=== PATIENT | male | born 1965 | race Caucasian/White ===

== ENCOUNTER 2018-06-16 16:10 | Emergency (ER) | payer BC, SELFPAY ==
[2018-06-16 16:11] VITALS: BP 162/96; PULSE 105; RESP 17; TEMP 36.4; O2SAT 97; BMI 29.8
--- NOTE | 2018-06-16 16:40 | CT_ITS ---
STUDY: CTA CHEST REASON FOR EXAM: Male, 52 years old. Shortness of breath RADIATION DOSAGE (If Supplied By Facility): CTDIvol = ( 15.44 ) mGy, DLP = ( 1615.57 ) mGycm TECHNIQUE: The examination was performed with the intravenous administration of 100 ml of Isovue 370 contrast material. Post-processing of the angiographic images was performed, with multiplanar reformation and 3D reconstruction. Individualized dose optimization techniques were used for this CT. COMPARISON: None. FINDINGS: Normal enhancement of the main pulmonary artery and right and left pulmonary arteries without filling defects. Normal enhancement of the bilateral peripheral pulmonary arteries without evidence of filling defects. The thoracic aorta is unremarkable. There is no demonstrated aortic dissection. The heart is normal in size. There is minimal fluid in the pericardial space. There is marked soft tissue in the anterior mediastinum measuring up to 9 cm in the transverse plane. There are enlarged lymph nodes throughout the mediastinum. The hilar regions are unremarkable. The airways are unremarkable. There is minimal biapical scarring. There is dependent atelectasis in both lower lobes. There is no demonstrated pleural abnormality. There are prominent lymph nodes in the left axilla. There are enlarged lymph nodes in the lower neck, left greater than right. There are mild degenerative changes in the visualized spine. There are moderate degenerative changes in both shoulders. There is mild diverticulosis of the visualized colon. CT/CTA Chest W/WO Contrast IMPRESSION: There is no evidence of pulmonary embolism, aortic aneurysm or aortic dissection. There are enlarged lymph nodes throughout the mediastinum with a large conglomerate of nodes in the anterior mediastinum measuring up to 9 cm in the transverse plane. Although this may represent metastatic lymph nodes, the appearance is highly worrisome for lymphoma. There is probable compression of the left brachiocephalic vein likely accounting for the left arm and neck swelling. There are prominent lymph nodes in the left axillary region, and there are enlarged lymph nodes in the lower neck which are more numerous on the left side. There are no acute parenchymal abnormalities. There is dependent atelectasis in both lungs. There is no pleural effusion. There is a small pericardial effusion. Electronically Signed: Chely Fountain MD at 18:23 EDT Tel Direct: [phone], Service support ,
--- NOTE | 2018-06-16 16:40 | CT_ITS ---
STUDY: CTA NECK WITH CONTRAST REASON FOR EXAM: Male, 52 years old. Left neck and arm swelling RADIATION DOSAGE (If Supplied By Facility): CTDIvol = ( 15.44 ) mGy, DLP = ( 1615.57 ) mGycm TECHNIQUE: CT angiography with multi-detector data acquisition was performed from the aortic arch to the skull base following intravenous administration of 100 ml of Isovue 370 contrast. MIP images were reconstructed from the axial data set. Post-processing of the angiographic images was performed, with multiplanar reformation and 3D reconstruction. Individualized dose optimization techniques were used for this CT. COMPARISON: None. FINDINGS: AORTIC ARCH: The aortic arch is normal in appearance. Normal origins of the brachiocephalic, left common carotid, and left subclavian arteries. RIGHT CAROTID ARTERIES: There are no significant abnormalities in the right common carotid artery. The right carotid bulb is normal in appearance. Normal origin of the right internal carotid artery without a hemodynamically significant stenosis. Normal visualized cervical portion of the right internal carotid artery. Normal origin of the right external carotid artery (ECA). LEFT CAROTID ARTERIES: There are no significant abnormalities in the left common carotid artery. The left carotid bulb is normal in appearance. Normal origin of the left internal carotid artery without a hemodynamically significant stenosis. Normal visualized cervical portion of the left internal carotid artery. Normal origin of the left external carotid artery (ECA). VERTEBRAL ARTERIES: The vertebral arteries show no significant abnormalities. There is minimal biapical scarring. There is a large mass in the upper anterior mediastinum. There are enlarged lymph nodes in the lower neck, more numerous on the left side. These measure up to 2 cm in size. The distal left jugular vein is occluded. The distal left subclavian vein is not visualized. The left brachiocephalic vein is not visualized. The thyroid is normal in appearance. The submandibular glands and parotid glands are symmetric and normal in appearance. There are mild sinus changes in the ethmoid air cells. The mastoid air cells are well aerated. There are mild degenerative changes in the cervical spine. CT/CTA Neck W/WO Contrast IMPRESSION: There is no significant vascular disease in the cervical carotid arteries or vertebral arteries. There is a large mass in the upper anterior mediastinum, likely a conglomerate of enlarged lymph nodes. The appearance is highly worrisome for lymphoma. There are also enlarged lymph nodes in the lower neck, more numerous on the left side. 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 Electronically Signed: Chely Fountain MD at 18:28 EDT Tel Direct: [phone], Service support ,
[2018-06-16 17:00] LABS: Absolute Lymphocyte Count 1.43 X10^3/ul (0.83-4.51); Absolute Neutrophil Count 5.5 X10^3/uL (2.0-7.7); Basophil# 0.01 X10^3/uL; Basophil% 0.1 % (0-1); Eosinophil# 0.51 X10^3/uL; Eosinophils% 6.1 % (0-5); Hematocrit 37.9 % (40-54); Hemoglobin 12.6 g/dl (13.0-16.5); Lymphocyte # 1.43 X10^3/ul (4.0); Lymphocyte % 17.2 % (19-41); Mean Corp Hgb Conc 33.2 g/gl (32-36); Mean Corpuscular Hgb 28.8 pg (27.0-32.0); Mean Corpuscular Volume 86.5 fL (80-94); Mean Platelet Vol. 8.7 fl (6.2-12.0); Monocyte# 0.86 X10^3/uL; Monocyte% 10.3 % (0-10); Neutrophil # 5.47 X10^3/uL (2.7-7.7); Neutrophil % 65.9 % (47-70); Platelet Count 315 K/mm3 (150-450); RBC Distribution Width CV 12.5 % (11.6-14.6); RBC Distribution Width SD 40.1 fl (35.1-43.9); Red Blood Count 4.38 M/mm3 (4.6-6.2); White Blood Count 8.3 K/mm3 (4.4-11.0)
[2018-06-16 17:01] LABS: POSITIVE COUNT NO; POSITIVE DIFFERENTIAL NO; POSITIVE MORPHOLOGY NO
[2018-06-16 17:24] LABS: Anion Gap 5 (5-15); BUN 14 mg/dL (7-18); BUN/Creat Ratio 12.8 RATIO (10-20); Calcium,Total 8.8 mg/dL (8.5-10.1); Chloride 107 mmol/L (98-107); Creatinine, Serum 1.09 mg/dL (0.70-1.30); EST Glomerular Filtration Rate 76 mL/min (>60); Est Glom Filt Rate - Afr Amer 92 mL/min (>60); Estimated Creatinine Clearance 73.17 ml/min; Glucose 95 mg/dL (74-106); Potassium 3.8 mmol/L (3.5-5.1); Sodium Level 139 mmol/L (136-145)
--- NOTE | 2018-06-16 17:53 | ED.DCSUM_ITS ---
- ER Visit Summary Date of Service: 06/16/18 Chief Complaint: Left arm swelling History of Present Illness: The patient is a 52 M presenting with swelling of his left upper extremity. He states this occurred 1 week ago. He woke up and his left arm was swollen. He states over the next several days it started to resolve. Today he noticed swelling in the lower part of the anterior left neck. He denies any injury. Denies chest pain or shortness of breath. He has had a mild cough. Denies fever. Denies other complaints. Physical Examination: Vitals are stable. Patient is afebrile. Alert no acute distress. HEENT exam is unremarkable. Neck is supple. Left anterior lower neck swelling with no redness, warmth, or areas of fluctuance. Lungs are clear and equal bilaterally. Heart is regular rate and rhythm. Abdomen is soft nontender nondistended. Extremities no obvious swelling of left upper extremity, normal pulse. No warmth or erythema. Skin is warm and dry. No focal neurologic deficit. Remainder of exam is unremarkable. Emergency Department Course and Treatment: CBC, chemistries unremarkable. Troponin is negative. CTA chest shows there is no evidence of pulmonary embolism, aortic aneurysm or aortic dissection. There are enlarged lymph nodes throughout the mediastinum with a large conglomerate of nodes in the anterior mediastinum measuring up to 9 cm in the transverse plane. Although this may represent metastatic lymph nodes, the appearance is highly worrisome for lymphoma. There is probable compression of the left brachiocephalic vein likely accounting for the left arm and neck swelling. There are prominent lymph nodes in the left axillary region, and there are enlarged lymph nodes in the lower neck which are more numerous on the left side. There are no acute parenchymal abnormalities. There is dependent atelectasis in both lungs. There is no pleural effusion. There is a small pericardial effusion. CTA neck shows there is no significant vascular disease in the cervical carotid arteries or vertebral arteries. There is a large mass in the upper anterior mediastinum, likely a conglomerate of enlarged lymph nodes. The appearance is highly worrisome for lymphoma. There are also enlarged lymph nodes in the lower neck, more numerous on the left side. 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 Discussed with Dr. Pierce and Dr. Costello. He was evaluated by Dr. Costello in the ED. He requested CT neck chest abdomen pelvis without contrast. This was obtained. He will likely need mediastinoscopy to obtain biopsy. He recommends transfer to a tertiary care center. Discussed with [facility] for transfer. Disposition: Transfer [facility] Impression: Left arm and neck swelling, anterior mediastinal mass with lymph nodes concerning for lymphoma This note was generated with [employer] dictation software. It may contain incorrect words, spelling, and punctuation that were not noted in review of the chart prior to signing ED Disposition - Plan for ED Patient: Chief Complaint: Upper Extremity Injury Referrals: Leif Pruett MD [Primary Care Provider] -
[2018-06-16 18:20] VITALS: BP 140/93; PULSE 87; RESP 14
[2018-06-16 20:00] VITALS: BP 153/78; PULSE 78; RESP 17; O2SAT 98
--- NOTE | 2018-06-16 20:08 | CT_ITS ---
STUDY: CT SOFT TISSUE NECK WITHOUT CONTRAST REASON FOR EXAM: Male, 52 years old. Neck pain RADIATION DOSAGE (If Supplied By Facility): CTDIvol = ( 23.07 ) mGy, DLP = ( 2646.07 ) mGycm TECHNIQUE: The patient was scanned in a multi-detector CT scanner. High resolution transaxial imaging was performed without the administration of intravenous contrast material. Sagittal and coronal images were reconstructed. # of Images: 532 Individualized dose optimization techniques were used for this CT. COMPARISON: None. FINDINGS: Normal bilateral parotid glands. Normal bilateral staff reporter spaces. Normal bilateral parapharyngeal spaces. Normal bilateral carotid spaces. Normal bilateral sublingual and submandibular glands and spaces. Normal visualized nasopharynx. Normal retropharyngeal space. Normal perivertebral space. Normal visualized bilateral faucial tonsils. The visualized tongue, tongue base and oropharynx are normal. Bilateral diffuse supraclavicular lymphadenopathy with bulky appearance. Small jugulodigastric bilateral lymph nodes in the neck Normal epiglottis, bilateral vallecula and hypopharynx. The pre-epiglottic and paraglottic adipose spaces are normal. Normal visualized bilateral piriform sinuses, aryepiglottic folds, vocal cords, and arytenoid-cricoid articulations. Normal subglottic trachea. Normal bilateral lobes of the thyroid gland. Normal visualized paranasal sinuses. There is multilevel degenerative changes of the cervical spine. CT/Soft Tissue Neck without Contr IMPRESSION: Bulky and diffuse bilateral supraclavicular lymphadenopathy. Suggestive of lymphoma. Only small lymph nodes in the neck region however. No evidence of abscess. Electronically Signed: Yunior Argueta DO at 20:53 EDT Tel , Service support ,
--- NOTE | 2018-06-16 20:08 | CT_ITS ---
STUDY: CT CHEST WITHOUT CONTRAST REASON FOR EXAM: Male, 52 years old. Chest pain RADIATION DOSAGE (If Supplied By Facility): CTDIvol = ( 23.07 ) mGy, DLP = ( 2646.07 ) mGycm TECHNIQUE: Transaxial imaging of the chest was performed without intravenous contrast material. Sagittal and coronal reconstructions were performed. Individualized dose optimization techniques were used for this CT. COMPARISON: CTA chest from the same day FINDINGS: There are no focal airspace opacities. There are increased lung markings in the dependent aspects of both lower lobes. There is no demonstrated pleural abnormality. The heart is normal in size. There is minimal fluid in the pericardial space. There are enlarged lymph nodes in the mediastinum. There is a mass in the anterior mediastinum measuring up to 9 cm in transverse diameter. The hilar regions are unremarkable allowing for lack of contrast in the vessels. The pulmonary arteries are unremarkable. The thoracic aorta is within normal limits. There are minimal degenerative changes in the visualized spine. There are moderate degenerative changes in both shoulders. There are prominent lymph nodes in the left axillary region. The upper abdomen is dictated separately. CT/Chest without Contrast IMPRESSION: There are enlarged lymph nodes throughout the mediastinum, as well as a mass in the anterior mediastinum likely representing a conglomerate of lymph nodes. This measures up to 9 cm in the transverse diameter. The appearance is worrisome for lymphoma. There are no acute parenchymal abnormalities. There is dependent atelectasis in both lower lobes. There is no pleural effusion. There is a small pericardial effusion. Electronically Signed: Chely Fountain MD at 21:19 EDT Tel Direct: [phone], Service support ,
--- NOTE | 2018-06-16 20:08 | CT_ITS ---
STUDY: CT ABDOMEN AND PELVIS WITHOUT CONTRAST REASON FOR EXAM: Male, 52 years old. Abdominal pain RADIATION DOSAGE (If Supplied By Facility): CTDIvol = ( 23.07 ) mGy, DLP = ( 2646.07 ) mGycm TECHNIQUE: Transaxial images were obtained from the lower chest to the upper thighs without oral contrast, and without intravenous contrast. Sagittal and coronal images were reconstructed. Individualized dose optimization techniques were used for this CT. COMPARISON: None. FINDINGS: The lower chest is dictated separately. The liver is unremarkable. The gallbladder and biliary ducts are unremarkable. The spleen is unremarkable. The pancreas is unremarkable. The adrenal glands are unremarkable. The right kidney is unremarkable. There is no dilatation of the collecting system in the right kidney. The left kidney is unremarkable. There is no dilatation of the collecting system in the left kidney. There is contrast in the collecting systems of both kidneys after CTA of the chest. The stomach is unremarkable. The small bowel is unremarkable. The colon is unremarkable. The appendix is visualized and appears normal. There are minimal scattered vascular calcifications. The IVC is unremarkable. The retroperitoneum is unremarkable. There is no free fluid in the abdomen. There is contrast in the bladder after CTA of the chest. The prostate is normal in size with coarse calcifications. There is a small umbilical hernia containing fat. There are mild degenerative changes in the visualized spine. There are marked degenerative disc changes at L5-S1. CT/Abdomen/Pelvis without Cont IMPRESSION: No acute abnormalities are seen in the abdomen or pelvis. There are no acute bowel abnormalities. There is no ascites or free air. There is no significant lymphadenopathy in the abdomen or pelvis. Electronically Signed: Chely Fountain MD at 21:05 EDT Tel Direct: [phone], Service support ,
[2018-06-16 22:18] VITALS: BP 145/88; PULSE 90; RESP 22
[2018-06-17] VITALS: BP 146/88; PULSE 55; RESP 15
[2018-06-17 02:45] VITALS: BP 146/88; PULSE 84; PULSE 87; RESP 16; O2SAT 97; O2SAT 98
--- NOTE | 2018-06-17 05:41 | PCM.CONS.GEN ---
Reason for Consult Date of Consultation: 06/16/18 History of Present Illness: The patient is a 52 year old M who presented with a one-week history of left arm swelling. patient initially noted that his fingers seemed somewhat dusky and his upper arm was more swollen than his right arm. He noted this last week. His massages arm and felt that improved the circulation, color, and had less swelling. The patient did note some numbness and tingling in his fingers at that time but this has since improved. Since this is persistent for the past week and the patient now notes a degree of swelling to the left side of his neck he presented to [facility] emergency department. He denied constitutional symptoms of fever, night sweats weight loss or other difficulties. He noted no palpable adenopathy. He does note a mild cough. CT angiogram of the chest was obtained. This demonstrated significant adenopathy that was felt to be pharmaceutical service representative of lymphoma. Dr. Pierce was initially consult by the emergency department and asked if the patient could be admitted for probable lymphoma. I was contacted for possible biopsy. Dr. Pierce also had wished to have CT scan of the neck chest abdomen and pelvis obtained. These images were obtained and reviewed by myself. reviewing the CT scans now with the official report included the following-CT scan of the neck FINDINGS: FINDINGS: There are no focal airspace opacities. There are increased lung markings in the dependent aspects of both lower lobes. There is no demonstrated pleural abnormality. The heart is normal in size. There is minimal fluid in the pericardial space. There are enlarged lymph nodes in the mediastinum. There is a mass in the anterior mediastinum measuring up to 9 cm in transverse diameter. The hilar regions are unremarkable allowing for lack of contrast in the vessels. The pulmonary arteries are unremarkable. The thoracic aorta is within normal limits. There are minimal degenerative changes in the visualized spine. There are moderate degenerative changes in both shoulders. There are prominent lymph nodes in the left axillary region. The upper abdomen is dictated separately. CT scan of Chest: CT/Chest without Contrast IMPRESSION: There are enlarged lymph nodes throughout the mediastinum, as well as a mass in the anterior mediastinum likely representing a conglomerate of lymph nodes. This measures up to 9 cm in the transverse diameter. The appearance is worrisome for lymphoma. There are no acute parenchymal abnormalities. There is dependent atelectasis in both lower lobes. There is no pleural effusion. There is a small pericardial effusion. Normal bilateral parotid glands. Normal bilateral client reporting associate spaces. Normal bilateral parapharyngeal spaces. Normal bilateral carotid spaces. Normal bilateral sublingual and submandibular glands and spaces. Normal visualized nasopharynx. Normal retropharyngeal space. Normal perivertebral space. Normal visualized bilateral faucial tonsils. The visualized tongue, tongue base and oropharynx are normal. Bilateral diffuse supraclavicular lymphadenopathy with bulky appearance. Small jugulodigastric bilateral lymph nodes in the neck Normal epiglottis, bilateral vallecula and hypopharynx. The pre-epiglottic and paraglottic adipose spaces are normal. Normal visualized bilateral piriform sinuses, aryepiglottic folds, vocal cords, and arytenoid-cricoid articulations. Normal subglottic trachea. Normal bilateral lobes of the thyroid gland. Normal visualized paranasal sinuses. There is multilevel degenerative changes of the cervical spine. CT/Soft Tissue Neck without Contr IMPRESSION: Bulky and diffuse bilateral supraclavicular lymphadenopathy. Suggestive of lymphoma. Only small lymph nodes in the neck region however. No evidence of abscess. Ct scan of abdomen and pelvis: FINDINGS: The lower chest is dictated separately. The liver is unremarkable. The gallbladder and biliary ducts are unremarkable. The spleen is unremarkable. The pancreas is unremarkable. The adrenal glands are unremarkable. The right kidney is unremarkable. There is no dilatation of the collecting system in the right kidney. The left kidney is unremarkable. There is no dilatation of the collecting system in the left kidney. There is contrast in the collecting systems of both kidneys after CTA of the chest. The stomach is unremarkable. The small bowel is unremarkable. The colon is unremarkable. The appendix is visualized and appears normal. There are minimal scattered vascular calcifications. The IVC is unremarkable. The retroperitoneum is unremarkable. There is no free fluid in the abdomen. There is contrast in the bladder after CTA of the chest. The prostate is normal in size with coarse calcifications. There is a small umbilical hernia containing fat. There are mild degenerative changes in the visualized spine. There are marked degenerative disc changes at L5-S1. CT/Abdomen/Pelvis without Cont IMPRESSION: No acute abnormalities are seen in the abdomen or pelvis. There are no acute bowel abnormalities. There is no ascites or free air. There is no significant lymphadenopathy in the abdomen or pelvis. Past Medical History Allergies house dust Allergy (Verified 06/16/18 16:11) Unknown ragweed pollen Allergy (Verified 06/16/18 16:11) Unknown Home Medications: Ambulatory Orders Medication Instructions Recorded NK 06/16/18 Surgical History: no surgical history Smoking Status: Former smoker Review of Systems Constitutional: Denies: Chills, Fever, Weight Change HEENT: Denies: Head Aches, Sinus Congestion, Sinus Drainage Cardiovascular: Denies: Chest Pain, Palpitations Respiratory: Denies: Cough, Shortness of breath at rest, Sputum production Gastrointestinal: Denies: Abdominal Pain, Nausea, Vomiting Genitourinary: Denies: Dysuria Musculoskeletal: Denies: Joint Pain, Joint Tenderness Skin: Denies: Rash, Wounds Neurological: Denies: Numbness, Tingling, Focal weakness Psychiatric: Denies: Anxiety, Depression, Homicidal Ideations, Suicidal Ideations Hematologic/ Lymphatic: Denies: Easy Bruising, Easy Bleeding - Physical Exam General: Alert, Oriented x3 HEENT: Lymphadenopathy - mild shotty lymph nodes without suspicious palpable lymph nodes in the right or left upper neck. Asymmetry with edema of the left neck and supraclavicular region along with the left lateral face near the jawline consistent with a degree of venous distention. Lungs: Clear to auscultation, Normal air movement Cardiovascular: Regular rate, Regular Rhythm Abdomen: Bowel Sounds Present, Soft, Non Tender Extremities: - - a degree of asymmetry and swelling of the left upper arm compared to the right. No axillary adenopathy of significance on palpation no inguinal adenopathy. Vital Signs Temp Pulse Resp BP Pulse Ox 97.5 F L 87 16 146/88 H 98 06/16/18 16:11 06/17/18 02:45 06/17/18 02:45 06/17/18 02:45 06/17/18 02:45 Oxygen Delivery Method Room Air Weight: 83.915 kg Body Mass Index (BMI) 29.8 Laboratory Tests Past 24 Hrs 06/16/18 06/16/18 16:45 16:45 WBC 8.3 RBC 4.38 L Hgb 12.6 L Hct 37.9 L MCV 86.5 MCH 28.8 MCHC 33.2 RDW 12.5 RDW Differential 40.1 Plt Count 315 MPV 8.7 Immature Gran % (Auto) 0.400 Neut % (Auto) 65.9 Lymph % (Auto) 17.2 L Caroline % (Auto) 10.3 H Eos % (Auto) 6.1 H Baso % (Auto) 0.1 Absolute Neuts (auto) 5.5 Absolute Lymphs (auto) 1.43 Total Counted Not Reportable Sodium 139 Potassium 3.8 Chloride 107 Carbon Dioxide 27.0 Anion Gap 5 BUN 14 Creatinine 1.09 Estim Creat Clear Calc 73.17 Est GFR (MDRD) Af Amer 92 Est GFR (MDRD) Non-Af 76 BUN/Creatinine Ratio 12.8 Glucose 95 Calcium 8.8 Troponin I < 0.015 Assessment/Plan All Active Problems (Last Reviewed 06/16/18 @ 15:56 by Judith Javed) Corneal abrasion, 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 my review the CT scan and clinical examination does not reveal the degree of adenopathy of the supraclavicular abnormalities when compared to the very significant mediastinal adenopathy. It appears to me that the majority of SVC compression issues are related to the brachiocephalic trunk with this large mediastinal mass. Further the character of the mediastinal mass seems somewhat different than the adenopathy in the left supraclavicular area in that these lymph nodes seem multiple but around and variable in size. I'm not certain that the abnormalities in the supraclavicular area are more related to venous and lymphatic hypertension as opposed to the actual abnormality seen in the mediastinum. I'm also not comfortable given the depth of the lower neck supraclavicular area that I could comfortably or safely access these nodes for needle biopsy. I attempted to contact our radiologist who could perform ultrasound or CAT scan guided biopsy on Tuesday and unfortunately was unable to communicate with him. Given the location of this abnormality I'm contemplating the patient would likely benefit from CT-guided biopsy but would possibly need mediastinoscopy to biopsy the most suspicious mass. Given these findings and my inability to assure that we could do the biopsy locally, I recommended referral to a tertiary care center.
--- NOTE | 2018-06-17 05:46 | CON.PCM_ITS ---
Reason for Consult Date of Consultation: 06/16/18 History of Present Illness: The patient is a 52 year old M who presented with a one-week history of left arm swelling. patient initially noted that his fingers seemed somewhat dusky and his upper arm was more swollen than his right arm. He noted this last week. His massages arm and felt that improved the circulation, color, and had less swelling. The patient did note some numbness and tingling in his fingers at that time but this has since improved. Since this is persistent for the past week and the patient now notes a degree of swelling to the left side of his neck he presented to [facility] emergency department. He denied c onstitutional symptoms of fever, night sweats weight loss or other difficulties. He noted no palpable adenopathy. He does note a mild cough. CT angiogram of the chest was obtained. This demonstrated significant adenopathy that was felt to be food service sales representatives of lymphoma. Dr. Pierce was initially consult by the emergency department and asked if the patient could be admitted for probable lymphoma. I was contacted for possible biopsy. Dr. Pierce also had wished to have CT scan of the neck chest abdomen and pelvis obtained. These images were obtained and reviewed by myself. reviewing the CT scans now with the official report included the following-CT scan of the neck FINDINGS: FINDINGS: There are no focal airspace opacities. There are increased lung markings in the dependent aspects of both lower lobes. There is no demonstrated pleural abnormality. The heart is normal in size. There is minimal fluid in the pericardial space. There are enlarged lymph nodes in the mediastinum. There is a mass in the anterior mediastinum measuring up to 9 cm in transverse diameter. The hilar regions are unremarkable allowing for lack of contrast in the vessels. The pulmonary arteries are unremarkable. The thoracic aorta is within normal limits. There are minimal degenerative changes in the visualized spine. There are moderate degenerative changes in both shoulders. There are prominent lymph nodes in the left axillary region. The upper abdomen is dictated separately. CT scan of Chest: CT/Chest without Contrast IMPRESSION: There are enlarged lymph nodes throughout the mediastinum, as well as a mass in the anterior mediastinum likely representing a conglomerate of lymph nodes. This measures up to 9 cm in the transverse diameter. The appearance is worrisome for lymphoma. There are no acute parenchymal abnormalities. There is dependent atelectasis in both lower lobes. There is no pleural effusion. There is a small pericardial effusion. Normal bilateral parotid glands. Normal bilateral zigzag stitcher spaces. Normal bilateral parapharyngeal spaces. Normal bilateral carotid spaces. Normal bilateral sublingual and submandibular glands and spaces. Normal visualized nasopharynx. Normal retropharyngeal space. Normal perivertebral space. Normal visualized bilateral faucial tonsils. The visualized tongue, tongue base and oropharynx are normal. Bilateral diffuse supraclavicular lymphadenopathy with bulky appearance. Small jugulodigastric bilateral lymph nodes in the neck Normal epiglottis, bilateral vallecula and hypopharynx. The pre-epiglottic and paraglottic adipose spaces are normal. Normal visualized bilateral piriform sinuses, aryepiglottic folds, vocal cords, and arytenoid-cricoid articulations. Normal subglottic trachea. Normal bilateral lobes of the thyroid gland. Normal visualized paranasal sinuses. There is multilevel degenerative changes of the cervical spine. CT/Soft Tissue Neck without Contr IMPRESSION: Bulky and diffuse bilateral supraclavicular lymphadenopathy. Suggestive of lymphoma. Only small lymph nodes in the neck region however. No evidence of abscess. Ct scan of abdomen and pelvis: FINDINGS: The lower chest is dictated separately. The liver is unremarkable. The gallbladder and biliary ducts are unremarkable. The spleen is unremarkable. The pancreas is unremarkable. The adrenal glands are unremarkable. The right kidney is unremarkable. There is no dilatation of the collecting system in the right kidney. The left kidney is unremarkable. There is no dilatation of the collecting system in the left kidney. There is contrast in the collecting systems of both kidneys after CTA of the chest. The stomach is unremarkable. The small bowel is unremarkable. The colon is unremarkable. The appendix is visualized and appears normal. There are minimal scattered vascular calcifications. The IVC is unremarkable. The retroperitoneum is unremarkable. There is no free fluid in the abdomen. There is contrast in the bladder after CTA of the chest. The prostate is normal in size with coarse calcifications. There is a small umbilical hernia containing fat. There are mild degenerative changes in the visualized spine. There are marked degenerative disc changes at L5-S1. CT/Abdomen/Pelvis without Cont IMPRESSION: No acute abnormalities are seen in the abdomen or pelvis. There are no acute bowel abnormalities. There is no ascites or free air. There is no significant lymphadenopathy in the abdomen or pelvis. Past Medical History Allergies house dust Allergy (Verified 06/16/18 16:11) Unknown ragweed pollen Allergy (Verified 06/16/18 16:11) Unknown Home Medications: Ambulatory Orders Medication Instructions Recorded NK 06/16/18 Surgical History: no surgical history Smoking Status: Former smoker Review of Systems Constitutional: Denies: Chills, Fever, Weight Change HEENT: Denies: Head Aches, Sinus Congestion, Sinus Drainage Cardiovascular: Denies: Chest Pain, Palpitations Respiratory: Denies: Cough, Shortness of breath at rest, Sputum production Gastrointestinal: Denies: Abdominal Pain, Nausea, Vomiting Genitourinary: Denies: Dysuria Musculoskeletal: Denies: Joint Pain, Joint Tenderness Skin: Denies: Rash, Wounds Neurological: Denies: Numbness, Tingling, Focal weakness Psychiatric: Denies: Anxiety, Depression, Homicidal Ideations, Suicidal Ideations Hematologic/ Lymphatic: Denies: Easy Bruising, Easy Bleeding - Physical Exam General: Alert, Oriented x3 HEENT: Lymphadenopathy - mild shotty lymph nodes without suspicious palpable lymph nodes in the right or left upper neck. Asymmetry with edema of the left neck and supraclavicular region along with the left lateral face near the jawline consistent with a degree of venous distention. Lungs: Clear to auscultation, Normal air movement Cardiovascular: Regular rate, Regular Rhythm Abdomen: Bowel Sounds Present, Soft, Non Tender Extremities: - - a degree of asymmetry and swelling of the left upper arm compared to the right. No axillary adenopathy of significance on palpation no inguinal adenopathy. Vital Signs Temp Pulse Resp BP Pulse Ox 97.5 F L 87 16 146/88 H 98 06/16/18 16:11 06/17/18 02:45 06/17/18 02:45 06/17/18 02:45 06/17/18 02:45 Oxygen Delivery Method Room Air Weight: 83.915 kg Body Mass Index (BMI) 29.8 Laboratory Tests Past 24 Hrs 06/16/18 06/16/18 16:45 16:45 WBC 8.3 RBC 4.38 L Hgb 12.6 L Hct 37.9 L MCV 86.5 MCH 28.8 MCHC 33.2 RDW 12.5 RDW Differential 40.1 Plt Count 315 MPV 8.7 Immature Gran % (Auto) 0.400 Neut % (Auto) 65.9 Lymph % (Auto) 17.2 L [place] % (Auto) 10.3 H Eos % (Auto) 6.1 H Baso % (Auto) 0.1 Absolute Neuts (auto) 5.5 Absolute Lymphs (auto) 1.43 Total Counted Not Reportable Sodium 139 Potassium 3.8 Chloride 107 Carbon Dioxide 27.0 Anion Gap 5 BUN 14 Creatinine 1.09 Estim Creat Clear Calc 73.17 Est GFR (MDRD) Af Amer 92 Est GFR (MDRD) Non-Af 76 BUN/Creatinine Ratio 12.8 Glucose 95 Calcium 8.8 Troponin I < 0.015 Assessment/Plan All Active Problems (Last Reviewed 06/16/18 @ 15:56 by Judith Javed) Corneal abrasion, 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 my review the CT scan and clinical examination does not reveal the degree of adenopathy of the supraclavicular abnormalities when compared to the very significant mediastinal adenopathy. It appears to me that the majority of SVC compression issues are related to the brachiocephalic trunk with this large mediastinal mass. Further the character of the mediastinal mass seems somewhat different than the adenopathy in the left supraclavicular area in that these lymph nodes seem multiple but around and variable in size. I'm not certain that the abnormalities in the supraclavicular area are more related to venous and lymphatic hypertension as opposed to the actual abnormality seen in the mediastinum. I'm also not comfortable given the depth of the lower neck supracl avicular area that I could comfortably or safely access these nodes for needle biopsy. I attempted to contact our radiologist who could perform ultrasound or CAT scan guided biopsy on Tuesday and unfortunately was unable to communicate with him. Given the location of this abnormality I'm contemplating the patient would likely benefit from CT-guided biopsy but would possibly need mediastinoscopy to biopsy the most suspicious mass. Given these findings and my inability to assure that we could do the biopsy locally, I recommended referral to a tertiary care center.
== END 2018-06-17 02:47 | disposition short-term general hospital (02) ==
PROVIDERS: Emergency Provider Emergency Medicine; Family Provider Family Medicine; PCP Family Medicine
DX: I89.8 Other specified noninfective disorders of lymphatic vessels and lymph nodes (principal); R22.1 Localized swelling, mass and lump, neck; M79.89 Other specified soft tissue disorders; Z87.891 Personal history of nicotine dependence
CPT/HCPCS: 70490; 70498; 71250; 71275; 74176; 80048; 84484; 85025; 99285; Q9967; A4216

== ENCOUNTER 2018-10-24 18:41 | Emergency (ER) | payer BC, SELFPAY ==
[2018-10-24 18:41] VITALS: BP 159/87; PULSE 111; RESP 18; TEMP 36.1; O2SAT 98; BMI 30.5
--- NOTE | 2018-10-24 19:11 | ED.VISSUMM ---
- ER Visit Summary Date of Service: 10/24/18 Chief Complaint: Patient presents because of concern for blood clot. History of Present Illness: The patient is a 53 M who has history of Hodgkin's lymphoma stage II under the care of Dr. Hill. He has a port left subclavian. He presents because of swelling, discoloration, discomfort and tingling of his right upper extremity. This started within the last 12-24 hours. Denies chest pain, shortness of breath or difficulty breathing. He denies any leg pain, swelling discoloration. He has no other complaints. Physical Examination: Vital signs noted. Blood pressure is elevated. He is slightly tachycardic at 111. He is not hypoxic, tachypneic or febrile. HEENT is grossly unremarkable. Radial pulse palpable. Axillary, median, radial and ulnar intact. The right upper extremity is swollen compared to the left with discoloration. 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 Test Results: Outpatient venous duplex study was ordered of the right upper extremity to be performed tomorrow. He will receive 1 dose of Lovenox in the emergency department. Emergency Department Course and Treatment: 1 mg/kg Lovenox and outpatient venous duplex study. Dr. Hill was paged to inform him that we do not have capability of performing venous duplex study of the upper extremity after 5 PM. Treatment Plan: Lovenox and outpatient study Disposition: Discharge to home Impression: Phlegmasia cerulea dolens right upper extremity This note was generated with [employer] dictation software. It may contain incorrect words, spelling, and punctuation that were not noted in review of the chart prior to signing ED Disposition - Plan for ED Patient: Disposition: Home or Assisted Living Instructions: ED DVT Referrals: Leif Pruett MD [Primary Care Provider] - Delfin Pierce MD [STAFF PHYSICIAN] - Additional Instructions: You will need to contact outpatient vascular lab for appointment tomorrow morning to have a venous duplex study of the right upper extremity to confirm suspicion for clot right upper extremity. You were given a dose of Lovenox. You are more susceptible to bruising and if you were to hit your head he will need to return to the emergency department for evaluation.
--- NOTE | 2018-10-24 19:15 | ED.DCSUM_ITS ---
- ER Visit Summary Date of Service: 10/24/18 Chief Complaint: Patient presents because of concern for blood clot. History of Present Illness: The patient is a 53 M who has history of Hodgkin's lymphoma stage II under the care of Dr. Hill. He has a port left subclavian. He presents because of swelling, discoloration, discomfort and tingling of his right upper extremity. This started within the last 12-24 hours. Denies chest pain, shortness of breath or difficulty breathing. He denies any leg pain, s welling discoloration. He has no other complaints. Physical Examination: Vital signs noted. Blood pressure is elevated. He is slightly tachycardic at 111. He is not hypoxic, tachypneic or febrile. HEENT is grossly unremarkable. Radial pulse palpable. Axillary, median, radial and ulnar intact. The right upper extremity is swollen compared to the left with discoloration. 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 Test Results: Outpatient venous duplex study was ordered of the right upper extremity to be performed tomorrow. He will receive 1 dose of Lovenox in the emergency department. Emergency Department Course and Treatment: 1 mg/kg Lovenox and outpatient venous duplex study. Dr. Hill was paged to inform him that we do not have capability of performing venous duplex study of the upper extremity after 5 PM. Treatment Plan: Lovenox and outpatient study Disposition: Discharge to home Impression: Phlegmasia cerulea dolens right upper extremity This note was generated with [employer] dictation software. It may contain incorrect words, spelling, and punctuation that were not noted in review of the chart prior to signing ED Disposition - Plan for ED Patient: Disposition: Home or Assisted Living Instructions: ED DVT Referrals: Leif Pruett MD [Primary Care Provider] - Delfin Pierce MD [STAFF PHYSICIAN] - Additional Instructions: You will need to contact outpatient vascular lab for appointment tomorrow morning to have a venous duplex study of the right upper extremity to confirm suspicion for clot right upper extremity. You were given a dose of Lovenox. You are more susceptible to bruising and if you were to hit your head he will need to return to the emergency department for evaluation.
[2018-10-24] MEDS: Enoxaparin 100 MG/ML Syringe 90 MG SC (19:32)
[2018-10-24 19:35] VITALS: BP 138/105; PULSE 101; RESP 16; O2SAT 97
== END 2018-10-24 19:36 | disposition home or self-care (01) ==
PROVIDERS: Emergency Provider Emergency Medicine; Family Provider Family Medicine; PCP Family Medicine
DX: I80.8 Phlebitis and thrombophlebitis of other sites (principal); C81.90 Hodgkin lymphoma, unspecified, unspecified site
CPT/HCPCS: 96372; 99283

== ENCOUNTER → 2018-10-25 08:59 | Outpatient (CLI) | payer BC, SELFPAY ==
[2018-10-24 18:41] VITALS: BMI 30.5
--- NOTE | 2018-10-25 09:07 | VDUE_ITS ---
Reason For Study: Phlegmasia cerulea dolens per dr order Right Proximal Right jugular vein is spontaneous, widely patent, phasic, with no intraluminal echogenicity noted. Subclavian Vein is dilated and non- compressible with intraluminal echoes and absent color flow and doppler signal. Right Lower Arm Right radial vein is compressible. Right ulnar vein is compressible. Right Arm Axillary vein non-compressible with diminshed blood flow. Right brachial vein is compressible. Right cephalic vein is compressible. Right basilic vein is compressible. Interpretation Summary Acute deep venous thrombosis right subclavian and axillary veins. Patent and compressible right cephalic and basilic veins. Ordering Physician: Blayne Angeles Referring Physician: Delfin Pierce Performed By: Antonette Pride RVT ?
== END ==
PROVIDERS: Family Provider Family Medicine; PCP Family Medicine; Referring Provider Emergency Medicine; Visit Provider Emergency Medicine
DX: I80.8 Phlebitis and thrombophlebitis of other sites (principal)
CPT/HCPCS: 93971

== ENCOUNTER → 2018-11-06 08:37 | Outpatient (CLI) | payer BC, SELFPAY ==
[2018-10-24 18:41] VITALS: BMI 30.5
--- NOTE | 2018-11-06 09:00 | PET_ITS ---
EXAMINATION: FDG PET CT INDICATIONS: A 53-year-old male with reported history of lymphoma presenting for restaging examination. COMPARISON EXAMINATION: CT of the neck, chest, abdomen and pelvis reports dated 06/16/18. NON-INDEX LESION SIZE SUV INTERPRETATION Left periauricular region 0.7 Quantitative criteria for viable neoplasm are not fulfilled TECHNIQUE: Following the intravenous administration of 14.37 mCi of F-18 deoxyglucose via the left antecubital fossa, multiplanar image acquisitions of the neck, chest, abdomen and pelvis to level of mid thigh, obtained at one hour post radiopharmaceutical administration contemporaneously interpreted with the current CT of the neck, chest, abdomen and pelvis to level of mid thigh, dated 11/06/[address] of the neck, chest, abdomen and pelvis reports dated 06/16/18 reveal: SERUM GLUCOSE LEVEL: 118 mg/dl. HEIGHT: 66 inches. WEIGHT: 185 lbs. FINDINGS: 1. There is no quantitative scintigraphic evidence of abnormal increased glucose metabolism on meticulous inspection of whole body acquisitions to include all three axis reconstructions. 2. Normal physiologic distribution of the radiopharmaceutical is apparent in the hepatic (3.3) and splenic parenchyma, both renal units, bladder and visualized intestinal tract. There is uniform distribution of the radiopharmaceutical concentration defined in the visualized cerebellar hemispheres and cerebral cortical structures.? Diffuse intestinal tract activity is noted throughout all four quadrants of the abdominal-pelvic retroperitoneum, mesentery consistent with normal physiologic distribution of the radiopharmaceutical. Prominent glucose metabolism is defined in the ascending and descending thoracic, as well as abdominal aorta commensurate with activated leukocytes associated with atherosclerotic plaque formation. (Tu et al, Clinical Nuclear Medicine 29:93, 2004). Subtle increased glucose concentration is defined in the left periauricular region generating a calculated maximum standard uptake value of 0.7. Quantitative criteria for viable neoplasm are not fulfilled. Pertinent CT findings are as follows. CHEST: [id number]-[id number]-MediPort placement is noted. Subcentimeter bilateral axillary soft tissue densities are non-glucose avid. Mediastinal soft tissue demonstrates no evidence of definable enhanced glucose avidity. There are no parenchymal densities-nodules defined in the right-left hemithorax manifesting quantitatively significant increased glucose metabolism. ABDOMEN AND PELVIS: Pelvic arterial calcification is observed. Bilateral inguinal soft tissue densities are ametabolic. Calcifications are noted within the prostate gland without evidence of facilitated FDG uptake. Calcified phlebolith formation is noted in the right lower hemipelvis. There is borderline fatty metamorphosis defined within the hepatic parenchyma. SKELETAL: Degenerative changes defined in the cervical, thoracic and lumbar spine demonstrate no evidence for glucose hypermetabolism. Scattered sclerotic densities noted within the axial skeletal structures demonstrate no evidence of increased glucose metabolism. PET/PET/CT Tumor Base -Thigh Subs IMPRESSION: 1. NEGATIVE EXAMINATION. There is no definitive quantitative scintigraphic evidence of recurrent-viable neoplasm. 2. Mild enhanced glucose concentration observed in the left periauricular region does not fulfill quantitative criteria for viable neoplasm. Electronic Signature Sharath Vazquez D.O. Electronically Signed: Sharath Vazquez DO at 23:04 EDT Tel , Service support ,
== END ==
PROVIDERS: Family Provider Family Medicine; PCP Family Medicine; Referring Provider Internal Medicine Hematology & Oncology; Visit Provider Internal Medicine Hematology & Oncology
DX: C81.18 Nodular sclerosis Hodgkin lymphoma, lymph nodes of multiple sites (principal)
CPT/HCPCS: 78815; A9552

== ENCOUNTER → 2020-03-21 | Outpatient (CLI) | payer BC, SELFPAY | END | disposition home or self-care (01) | LOC: LABSPEC 15:55 | PROVIDERS: PCP Family Medicine; Referring Provider Family Medicine; Visit Provider Family Medicine | DX: B34.9 Viral infection, unspecified (principal) | CPT/HCPCS: 87635; U0003 ==

== ENCOUNTER 2021-09-08 10:40 | Outpatient (CLI) | payer BC, SELFPAY ==
[2021-09-08 12:17] LABS: Absolute Lymphocyte Count 1.25 X10^3/uL (0.83-4.51); Basophil# 0.01 X10^3/uL; Basophil% 0.2 % (0-1); Eosinophil# 0.06 X10^3/uL; Hematocrit 40.8 % (40-54); Hemoglobin 14.2 g/dL (13.0-16.5); Lymphocyte # 1.25 X10^3/ul (0.83-4.51); Lymphocyte % 21.7 % (19-41); Mean Corp Hgb Conc 34.8 g/dL (32-36); Mean Corpuscular Hgb 30.1 pg (27.0-32.0); Mean Corpuscular Volume 86.4 fL (80-94); Mean Platelet Vol. 9.3 fl (6.2-12.0); Monocyte# 0.46 X10^3/uL; NRBC Flagged by Analyzer 0 % (0-5); Neutrophil # 3.96 X10^3/uL (2.7-7.7); Neutrophil % 68.6 % (47-70); Platelet Count 272 K/mm3 (150-450); RBC Distribution Width CV 11.7 % (11.6-14.6); RBC Distribution Width SD 37.3 fl (35.1-43.9); Red Blood Count 4.72 M/mm3 (4.6-6.2); White Blood Count 5.8 K/mm3 (4.4-11.0)
[2021-09-08 12:30] LABS: ALB/GLOB Ratio 0.7 RATIO (0.9-2.4); AST(SGOT) 54 U/L (15-37); Alanine Aminotransfer ALT/SGPT 84 U/L (16-61); Albumin, Serum 3.3 g/dL (3.2-5.0); Alkaline Phosphatase 61 U/L (45-117); Anion Gap 7 (5-15); BUN 14 mg/dL (7-18); Calcium,Total 8.7 mg/dL (8.5-10.1); Chloride 101 mmol/L (98-107); Creatinine, Serum 1.27 mg/dL (0.70-1.30); EST Glomerular Filtration Rate 63 mL/min (>60); Est Glom Filt Rate - Afr Amer 76 mL/min (>60); Globulin 4.9 g/dL (2.2-4.2); Glucose 140 mg/dL (74-106); Potassium 3.7 mmol/L (3.5-5.1); Protein, Total 8.2 g/dL (6.4-8.2); Sodium Level 136 mmol/L (136-145)
[2021-09-08 12:32] LABS: Erythrocyte Sedimentation Rate 39 mm/hr (0-20)
[2021-09-08 12:38] LABS: Hemoglobin A1c 7.1 % (3.8-5.6)
== END 2021-09-08 23:59 | disposition short-term general hospital (02) ==
LOC: MTLAB 10:42
PROVIDERS: PCP Family Medicine; Referring Provider Family Medicine; Visit Provider Family Medicine
DX: J39.2 Other diseases of pharynx (principal)
CPT/HCPCS: 36415; 80053; 83036; 85025; 85652; 86140

== ENCOUNTER → 2023-09-01 | Outpatient (CLI) | payer BC, SELFPAY ==
--- OUTSIDE RECORDS SUMMARY | 2023-09-01 09:10 | XMS RPT_ITS | CCD ---
Author Name Unknown Address [facility] [place] [address] Organization [facility] Results Test Name Value Interpretation Reference Range Facil ity Procedures Date Procedure Procedure Detail Performing Clinician Start: 08-25-2018 Antibody screen Progress note 08-10-2021 Note Date & Type Note Facility 08-10-2021 Note HNO ID: [id number] Author: Delfin Pierce MD Service: ? Author Type: Physician Type: Progress Notes Filed: 08/11/2021 8:27 AM Note Text: PATIENT NAME: Garrison Bernal. CLINIC NO: [id number]. ATTENDING PHYSICIAN: Delfin Pierce MD. DATE OF SERVICE:?08/10/2021 ? DIAGNOSIS:?Nodular sclerosis?Hodgkin lymphoma, stage IIA ?? HPI: Garrison Bernal is a 56?year old male who presented to the hospital with complaints of swelling left upper extremity and neck last fall.. ?He underwent evaluation with a CT neck ,chest and abdomen and pelvis. CT showed a mediastinal mass around 9 cm(lymphnodes)?and significant supraclavicular adenopathy compressing the brachiocephalic vein. He had two biopsies from the L/N which were non diagnostic. He?also had a bone marrow biopsy which was negative for malignancy or myelodysplastic changes. ? He subsequently underwent ?Left anterior mediastinotomy through the bed of the second costal cartilage on the left, Fence procedure on 08/27/18 for excisional biopsy. ? Pathology showed A) MEDIASTINAL TUMOR, BIOPSY - CLASSIC HODGKIN LYMPHOMA, NODULAR SCLEROSIS SUBTYPE (SEE NOTE). B) MEDIASTINAL TUMOR, BIOPSY - CLASSIC HODGKIN LYMPHOMA, NODULAR SCLEROSIS SUBTYPE (SEE NOTE). ? He had bone marrow biopsy 08/01/18 and was negative for involvement by lymphoma. ? He had a PET scan 07/06/18 showing 1. ?NECK: * ?Hypermetabolic lower cervical and supraclavicular lymph nodes. ?? 2. ?CHEST: * ?Hypermetabolic anterior mediastinal mass and hypermetabolic prevascular and right paratracheal lymph nodes, highly suspicious for malignancy such as lymphoma. ?? 3. ?ABDOMEN/PELVIS: * ?No FDG avid neoplastic process. . ?? 4. ?EXTREMITIES/SKELETON: * ?No suspicious FDG avid osseous lesion. ? Current treatment: ABVD?x?4?cycles?followed by radiation therapy (mantle field) ? Interim history:?Patient?remains in complete remission almost 2 years since finishing radiation treatment after chemotherapy for stage 2, Hodgkin lymphoma.??He denies any symptom of peripheral neuropathy. He?denies fever, chills, night sweats, fatigue or weight loss. He denies?chest pain, cough or shortness of breath.??He denied polyuria or polydipsia, although he still has a elevated nonfasting blood glucose. ? All medications AND allergies updated and reviewed by me. ? REVIEW OF SYSTEMS: ? CONSTITUTIONAL: ?No fevers, chills, nightsweats, unintended weight loss HEENT: ?Denies frequent or severe heaches, nasal congestion/sinus symptoms, problematic allergy problems. EYES: ?No diplopia or blurry vision. CARDIOVASCULAR: ?No chest pain, dyspnea, palpitations, orthopnea, PND, ankle edema. PULM: ?No dyspnea, or unexplained cough. GI: ?No dysphagia/odynophagia, problematic reflux, constipation, diarrhea, changes in stool habits, hematochezia, melena. : ?No new urinary complaints, including dysuria, gross hematuria or pyuria. NEURO: ?No new balance problems, peripheral weakness/paresthesias or numbness of concern. MUSC-SKEL: ?No new joint pain, swelling, or erythema. PSY: ?No concerns regarding depression, anxiety or panic. INTEGUMENTARY: ?No new skin changes (rash, new or changing mole, new growth) ? PHYSICAL EXAMINATION: 56-year-old well-nourished well-developed gentleman in no acute distress Performance status 100% BP 148/102 Pulse 83 Temp (Src) 98.2 (Temporal) Wt 200 lb 8 oz (90.9kg) HEENT: Head is normocephalic, atraumatic. Sclerae white, conjunctivae pink. PEERL. EOMs are intact. Oropharynx is benign. Neck: Supple, no thyroid nodules, no JVD. ?with??no?palpable adenopathy, LYMPHATICS:?No?cervical,?supraclavicular, ?axillae, or groin?adenopathy LUNGS: Lungs are clear to percussion and auscultation. HEART: Heart is normal without murmurs, gallops, or rubs. ABDOMEN: Soft and nontender without organomegaly. No masses can be palpated. EXTREMITIES: Are without edema. NEUROLOGIC: Exam is physiologic; deep tendon reflex is normal AND symmetrical. ? LABORATORY DATA: Component Latest Ref Rng AND Units 08/07/2021 WBC 3.70 - 11.00 k/uL 7.66 RBC 4.20 - 6.00 m/uL 4.74 Hemoglobin 13.0 - 17.0 g/dL 15.0 Hematocrit 39.0 - 51.0 % 41.5 MCV 80.0 - 100.0 fL 87.6 MCH 26.0 - 34.0 pG 31.6 MCHC 30.5 - 36.0 g/dL 36.1 (H) RDW-CV 11.5 - 15.0 % 12.2 Platelet Count 150 - 400 k/uL 239 MPV 9.0 - 12.7 fL 9.1 Neut% % 60.1 Abs Neut (ANC) 1.45 - 7.50 k/uL 4.60 Lymph% % 26.4 Abs Lymph 1.00 - 4.00 k/uL 2.02 Humphreys% % 8.7 Abs Humphreys <0.87 k/uL 0.67 Eosin% % 4.4 Abs Eosin <0.46 k/uL 0.34 Baso% % 0.4 Abs Baso <0.11 k/uL 0.03 Nucleated Reds 0 /100 WBC 0.0 Absolute nRBC <0.01 k/uL <0.01 Diff Type Auto Diff Component Latest Ref Rng AND Units 08/07/2021 Protein, Total 6.3 - 8.0 g/dL 7.2 Albumin 3.9 - 4.9 g/dL 4.6 Calcium 8.5 - 10.2 mg/dL 10.1 Bilirubin, Total 0.2 - 1.3 mg/dL 0.6 Alkaline Phosphatase 38 - 113 U/L 82 AST 14 - 40 U/L 40 Glucose 7 (more content not included)... [facility] Progress note 02-02-2021 Note Date & Type Note Facility 02-02-2021 Note HNO ID: [id number] Author: Delfin Pierce MD Service: ? Author Type: Physician Type: Progress Notes Filed: 02/03/2021 7:38 AM Note Text: PATIENT NAME: Garrison Bernal. CLINIC NO: [id number]. ATTENDING PHYSICIAN: Delfin Pierce MD. DATE OF SERVICE:?02/02/2021 ? DIAGNOSIS:?Nodular sclerosis?Hodgkin lymphoma, stage IIA ?? HPI: Garrison Bernal is a 55?year old male who presented to the hospital with complaints of swelling left upper extremity and neck last fall.. ?He underwent evaluation with a CT neck ,chest and abdomen and pelvis. CT showed a mediastinal mass around 9 cm(lymphnodes)?and significant supraclavicular adenopathy compressing the brachiocephalic vein. He had two biopsies from the L/N which were non diagnostic. He?also had a bone marrow biopsy which was negative for malignancy or myelodysplastic changes. ? He subsequently underwent ?Left anterior mediastinotomy through the bed of the second costal cartilage on the left, Fence procedure on 08/27/18 for excisional biopsy. ? Pathology showed A) MEDIASTINAL TUMOR, BIOPSY - CLASSIC HODGKIN LYMPHOMA, NODULAR SCLEROSIS SUBTYPE (SEE NOTE). B) MEDIASTINAL TUMOR, BIOPSY - CLASSIC HODGKIN LYMPHOMA, NODULAR SCLEROSIS SUBTYPE (SEE NOTE). ? He had bone marrow biopsy 08/01/18 and was negative for involvement by lymphoma. ? He had a PET scan 07/06/18 showing 1. ?NECK: * ?Hypermetabolic lower cervical and supraclavicular lymph nodes. ?? 2. ?CHEST: * ?Hypermetabolic anterior mediastinal mass and hypermetabolic prevascular and right paratracheal lymph nodes, highly suspicious for malignancy such as lymphoma. ?? 3. ?ABDOMEN/PELVIS: * ?No FDG avid neoplastic process. . ?? 4. ?EXTREMITIES/SKELETON: * ?No suspicious FDG avid osseous lesion. ? Current treatment: ABVD?x?4?cycles?followed by radiation therapy (mantle field) ? Interim history:?Patient??had a complete response on PET scan after 4 cycles of ABVD. He is doing well. He started to notice peripheral neuropathy again. He?denies fever, chills, night sweats, fatigue or weight loss. He denies?chest pain, cough or shortness of breath. She denied polyuria or polydipsia. ? All medications AND allergies updated and reviewed by me. ? REVIEW OF SYSTEMS: ? CONSTITUTIONAL: ?No fevers, chills, nightsweats, unintended weight loss HEENT: ?Denies frequent or severe heaches, nasal congestion/sinus symptoms, problematic allergy problems. EYES: ?No diplopia or blurry vision. CARDIOVASCULAR: ?No chest pain, dyspnea, palpitations, orthopnea, PND, ankle edema. PULM: ?No dyspnea, or unexplained cough. GI: ?No dysphagia/odynophagia, problematic reflux, constipation, diarrhea, changes in stool habits, hematochezia, melena. : ?No new urinary complaints, including dysuria, gross hematuria or pyuria. NEURO: ?No new balance problems, peripheral weakness/paresthesias or numbness of concern. MUSC-SKEL: ?No new joint pain, swelling, or erythema. PSY: ?No concerns regarding depression, anxiety or panic. INTEGUMENTARY: ?No new skin changes (rash, new or changing mole, new growth) ? PHYSICAL EXAMINATION: 55-year-old well-nourished well-developed gentleman in no acute distress Performance status 100% BP 142/86 Pulse 87 Temp (Src) 97.2 (Temporal) Wt 209 lb (94.8kg) HEENT: Head is normocephalic, atraumatic. Sclerae white, conjunctivae pink. PEERL. EOMs are intact. Oropharynx is benign. Neck: Supple, no thyroid nodules, no JVD. ?with??no?palpable adenopathy, LYMPHATICS: No cervical, supraclavicular,?axillae, or groin adenopathy LUNGS: Lungs are clear to percussion and auscultation. HEART: Heart is normal without murmurs, gallops, or rubs. ABDOMEN: Soft and nontender without organomegaly. No masses can be palpated. EXTREMITIES: Are without edema. NEUROLOGIC: Exam is physiologic; deep tendon reflex is intact symmetrical. ? LABORATORY DATA: Component Latest Ref Rng AND Units 01/30/2021 WBC 3.70 - 11.00 k/uL 5.88 RBC 4.20 - 6.00 m/uL 4.90 Hemoglobin 13.0 - 17.0 g/dL 15.3 Hematocrit 39.0 - 51.0 % 43.3 MCV 80.0 - 100.0 fL 88.4 MCH 26.0 - 34.0 pG 31.2 MCHC 30.5 - 36.0 g/dL 35.3 RDW-CV 11.5 - 15.0 % 12.6 Platelet Count 150 - 400 k/uL 193 MPV 9.0 - 12.7 fL 9.2 Neut% % 54.0 Abs Neut (ANC) 1.45 - 7.50 k/uL 3.17 Lymph% % 30.3 Abs Lymph 1.00 - 4.00 k/uL 1.78 Humphreys% % 8.8 Abs Humphreys <0.87 k/uL 0.52 Eosin% % 6.6 Abs Eosin <0.46 k/uL 0.39 Baso% % 0.3 Abs Baso <0.11 k/uL <0.03 Nucleated Reds 0 /100 WBC 0.0 Absolute nRBC <0.01 k/uL <0.01 Diff Type Auto Diff Component Latest Ref Rng AND Units 01/30/2021 Protein, Total 6.3 - 8.0 g/dL 7.0 Albumin 3.9 - 4.9 g/dL 4.3 Calcium 8.5 - 10.2 mg/dL 8.6 Bilirubin, Total 0.2 - 1.3 mg/dL 0.5 Alkaline Phosphatase 38 - 113 U/L 74 AST 14 - 40 U/L 42 (H) Glucose 74 - 99 mg/dL 189 (H) BUN 9 - 24 mg/dL 12 Creatinine 0.73 - 1.22 mg/dL 1.01 Sodium 136 - 144 mmol/L 137 Potassium 3.7 - 5.1 m (more content not included)... [facility] Progress note 01-30-2021 Note Date & Type Note Facility 01-30-2021 Note HNO ID: [id number] Author: Lakeshia Maldonado RT(R) Service: ? Author Type: Customer Experience Consultant Type: Progress Notes Filed: 01/30/2021 8:06 AM Note Text: Radiology Service Progress Note PATIENT NAME: Garrison Bernal DATE OF SERVICE: January 30, 2021 TIME: 7:58 AM PATIENT IDENTITY VERIFICATION COMPLETED USING TWO (2) IDENTIFIERS: Name and Date of confirmed by patient verbally. FALL SCREENING: Has the patient had 2 falls in the last year or 1 fall with injury or currently using an Ambulatory Assistive Device (Walker, Cane, Wheelchair, Crutches, etc.)? No PATIENT GENDER DATA: Male PATIENT RELEVANT IMPLANT DATA REVIEWED: Yes RADIOLOGY DEPARTMENT: General X-ray: Exam(s) Completed: Chest X-Ray PERIPHERAL IV DATA: Not applicable SIGNED BY: Lakeshia Maldonado RT(R) January 30, 2021 7:58 AM [facility] Summary Purpose Family History No Family History Records FoundNo Family History Records FoundNo Family History Records FoundNo Family History Records Found Advance Directives No Advanced Directives Records FoundNo Advanced Directives Records FoundNo Advanced Directives Records FoundNo Advanced Directives Records Found Hospital Course Note HNO ID: [id number] Author: Chhaya Salinas Service: Cardiac Surgery Author Type: Physician Type: Discharge Summaries Filed: 08/26/2018 12:18 PM Note Text: DISCHARGE SUMMARY PATIENT NAME: Garrison Bernal Code Status: Not on file Highest Readmission Risk Score: 7 The 30 day readmissions risk score is derived from an internally validated risk model which evaluates patient level characteristics, utilization history, medication orders and lab results up until the day of discharge. Patients with a score of 40 or above are considered highest risk for readmission. Specific patient level drivers will be listed at the bottom of the summary. Admission Information Admission Information ADMIT DATE: 08/25/2018 DISCHARGE DATE: 08/26/2018 MY DOCTORS AND MEDICAL TEAM: My Main [facility] Doctor: Varun Salinas Primary Care Provider: Leif Pruett MD My Medical Team Members: Treatment Team: Attending Provider: Varun Salinas MY CONDITION AT DISCHARGE: Good REASON I WAS IN (more content not included)... Note HNO ID: [id number] Author: Rom Bedolla Service: Radiology Author Type: Physician Type: Brief Op Note Filed: 08/01/2018 10:02 AM Note Text: BRIEF OPERATIVE / PROCEDURE NOTE LOG ID: [id number] SURGERY/PROCEDURE DATE: 08/01/2018 INCISION/PROCEDURE START TIME: INCISION CLOSE/PROCEDURE END TIME: SURGEON(S)/PROCEDURALIST(S) AND GYM MANAGER(S): Surgeon(s) and Role: * Misha Bedolla - Primary No Additional Staff SURGERY/PROCEDURE(S): CT-guided biopsy of mediastinal mass; bone marrow biopsy ANESTHESIA: Procedural Sedation FINDINGS: Successful ESTIMATED BLOOD LOSS: trace SPECIMENS: Bone marrow to hematology; mass for lymphoma protocol COMPLICATIONS: None PRE-OP/PRE-PROCEDURE DIAGNOSIS: lymphadenopathy POST-OP/POST-PROCEDURE DIAGNOSIS: same SIGNATURE: Misha Bedolla MD PATIENT NAME: Garrison Bernal DATE: August 01, 2018 TIME: 9:59 AM PAGER/CONTACT #: [phone] Procedure Findings Note HNO ID: [id number] Author: Rom Bedolla Service: Radiology Author Type: Physician Type: Brief Op Note Filed: 08/01/2018 10:02 AM Note Text: BRIEF OPERATIVE / PROCEDURE NOTE LOG ID: [id number] SURGERY/PROCEDURE DATE: 08/01/2018 INCISION/PROCEDURE START TIME: INCISION CLOSE/PROCEDURE END TIME: SURGEON(S)/PROCEDURALIST(S) AND GYM MANAGER(S): Surgeon(s) and Role: * Misha Bedolla - Primary No Additional Staff SURGERY/PROCEDURE(S): CT-guided biopsy of mediastinal mass; bone marrow biopsy ANESTHESIA: Procedural Sedation FINDINGS: Successful ESTIMATED BLOOD LOSS: trace SPECIMENS: Bone marrow to hematology; mass for lymphoma protocol COMPLICATIONS: None PRE-OP/PRE-PROCEDURE DIAGNOSIS: lymphadenopathy POST-OP/POST-PROCEDURE DIAGNOSIS: same SIGNATURE: Misha Bedolla MD PATIENT NAME: Garrison Bernal DATE: August 01, 2018 TIME: 9:59 AM PAGER/CONTACT #: [phone] Additional Source Comments (unrecognized sect ion and content) No Status Records FoundNo Status Records FoundNo Status Records FoundNo Status Records Found INFORMATION SOURCE (unrecogn ized section and content) DATE CREATED AUTHOR AUTHOR'S ORGANIZ ATION 07/12/2019 [employer] [facility] [employer] DATE CREATED AUTHOR AUTHOR'S ORGANIZ ATION 01/25/2020 [facility] DATE CREATED AUTHOR AUTHOR'S ORGANIZ ATION 10/06/2021 [facility] FOR RECORDS PERTAINING TO PATIENTS WHO ARE OR HAVE BEEN ENROLLED IN A CHEMICAL DEPENDENCY/SUBSTANCEABUSE PROGRAM, SOME INFORMATION MAY BE OMITTED. This clinical summary was aggregated from multiple sources. Caution should be exercised in using it in the provision of clinical care. This summary normalizes information from multiple sources, and as a consequence, information in this document may materially change the coding, format and clinical context of patient data. In addition, data may be omitted in some cases. CLINICAL DECISIONS SHOULD BE BASED ON THE PRIMARY CLINICAL RECORDS. [facility]. provides no warranty or guarantee of the accuracy or completeness of information in this document.
[2023-09-01 10:25] LABS: Absolute Lymphocyte Count 2.12 X10^3/uL (0.83-4.51); Absolute Neutrophil Count 3.1 X10^3/uL (2.0-7.7); Basophil# 0.05 X10^3/uL; Basophil% 0.8 % (0-1); Eosinophil# 0.48 X10^3/uL; Eosinophils% 7.5 % (0-5); Hematocrit 46.4 % (40-54); Hemoglobin 15.6 g/dL (13.0-16.5); Lymphocyte # 2.12 X10^3/ul (0.83-4.51); Lymphocyte % 33.1 % (19-41); Mean Corp Hgb Conc 33.6 g/dL (32-36); Mean Corpuscular Volume 89.2 fL (80-94); Mean Platelet Vol. 9.7 fl (6.2-12.0); Monocyte% 9.4 % (0-10); NRBC Flagged by Analyzer 0 % (0-5); Neutrophil # 3.12 X10^3/uL (2.7-7.7); Neutrophil % 48.6 % (47-70); Platelet Count 233 K/mm3 (150-450); RBC Distribution Width CV 12.1 % (11.6-14.6); RBC Distribution Width SD 39.8 fl (35.1-43.9); White Blood Count 6.4 K/mm3 (4.4-11.0)
[2023-09-01 10:27] LABS: Erythrocyte Sedimentation Rate 6 mm/hr (0-20)
[2023-09-01 10:44] LABS: Microalbumin,Random Urine 99.5 mg/L (NO RANGE EST.); Microalbumin:Creatinine Ratio 118.7 mg/g CRE (<30 mg/g CRE)
[2023-09-01 10:58] LABS: Hemoglobin A1c 6.6 % (3.8-5.6)
[2023-09-01 10:59] LABS: AST(SGOT) 38 U/L (15-37); Alanine Aminotransfer ALT/SGPT 90 U/L (16-61); Alkaline Phosphatase 61 U/L (45-117); Anion Gap 7 (5-15); BUN 17 mg/dL (7-18); BUN/Creat Ratio 14.7 RATIO (10-20); Calcium,Total 9.6 mg/dL (8.5-10.1); Chloride 105 mmol/L (98-107); Cholesterol 212 mg/dL (200); Creatinine, Serum 1.16 mg/dL (0.70-1.30); EST Glomerular Filtration Rate 69 mL/min (>60); Est Glom Filt Rate - Afr Amer 84 mL/min (>60); Glucose 153 mg/dL (74-106); High Density Lipoprotein 26 mg/dL; PSA,Total- Diagnostic 1.01 ng/mL (0.0-4.0); Potassium 4.3 mmol/L (3.5-5.1); Sodium Level 138 mmol/L (136-145); Triglycerides 385 mg/dL; Very Low Density Lipoprotein 77 mg/dL (5-40)
== END | disposition home or self-care (01) ==
PROVIDERS: PCP Family Medicine; Referring Provider Family Medicine; Visit Provider Family Medicine
DX: Z00.00 Encounter for general adult medical examination without abnormal findings (principal); E11.69 Type 2 diabetes mellitus with other specified complication; I10 Essential (primary) hypertension; Z85.71 Personal history of Hodgkin lymphoma
CPT/HCPCS: 36415; 80053; 80061; 82043; 82570; 83036; 84153; 85025; 85652

== ENCOUNTER → 2023-10-07 | Outpatient (CLI) | payer BC, SELFPAY ==
--- OUTSIDE RECORDS SUMMARY | 2023-10-07 16:15 | XMS RPT_ITS | CCD ---
Author Name Unknown Address [facility] [place] [address] Organization [facility] Results Test Name Value Interpretation Reference Range Facil ity Procedures Date Procedure Procedure Detail Performing Clinician Start: 08-25-2018 Antibody screen Progress note 08-10-2021 Note Date & Type Note Facility 08-10-2021 Note HNO ID: [id number] Author: Delfin Pierce MD Service: ? Author Type: Physician Type: Progress Notes Filed: 08/11/2021 8:27 AM Note Text: PATIENT NAME: Garrison Bernal. CLINIC NO: [id number]. ATTENDING PHYSICIAN: Delfin Pierce MD. DATE OF [...] the second costal cartilage on the left, Apollo procedure on 08/27/18 for excisional biopsy. ? [...] Abs Lymph 1.00 - 4.00 k/uL 2.02 [place]man% % 8.7 Abs [place] <0.87 k/uL 0.67 Eosin% % 4.4 Abs [...] not included)... [facility] Progress note 02-02-2021 Note Date & Type Note Facility 02-02-2021 Note HNO ID: [id number] Author: Delfin Pierce MD Service: ? Author Type: Physician Type: Progress Notes Filed: 02/03/2021 7:38 AM Note Text: PATIENT NAME: Garrison Bernal. CLINIC NO: [id number]. ATTENDING PHYSICIAN: Delfin Pierce MD. DATE OF [...] the second costal cartilage on the left, Apollo procedure on 08/27/18 for excisional biopsy. ? [...] Abs Lymph 1.00 - 4.00 k/uL 1.78 [place]man% % 8.8 Abs [place] <0.87 k/uL 0.52 Eosin% % 6.6 Abs [...] not included)... [facility] Progress note 01-30-2021 Note Date & Type Note Facility 01-30-2021 Note HNO ID: [id number] Author: Lakeshia Maldonado RT(R) Service: ? Author Type: Airplane Woodworker Type: Progress Notes Filed: 01/30/2021 8:06 AM [...] 7:58 AM [facility] Summary Purpose Family History No Family History Records FoundNo Family History Records FoundNo Family History Records FoundNo Family History Records Found Advance Directives No Advanced Directives Records FoundNo Advanced Directives Records FoundNo Advanced Directives Records FoundNo Advanced Directives Records Found Hospital Course Note HNO ID: [id number] Author: Chhaya Salinas Service: Cardiac Surgery Author [...] (more content not included)... Note HNO ID: [id number] Author: Rom Bedolla Service: Radiology Author Type: Physician Type: Brief Op Note Filed: 08/01/2018 10:02 AM Note Text: BRIEF OPERATIVE / PROCEDURE NOTE LOG ID: [id number] SURGERY/PROCEDURE DATE: 08/01/2018 INCISION/PROCEDURE START TIME: INCISION CLOSE/PROCEDURE END TIME: SURGEON(S)/PROCEDURALIST(S) AND FISHING FLOATS ASSEMBLER(S): Surgeon(s) and Role: * Misha Bedolla - [...] #: [id number] Procedure Findings Note HNO ID: [id number] Author: Rom Bedolla Service: Radiology Author Type: Physician Type: Brief Op Note Filed: 08/01/2018 10:02 AM Note Text: BRIEF OPERATIVE / PROCEDURE NOTE LOG ID: [id number] SURGERY/PROCEDURE DATE: 08/01/2018 INCISION/PROCEDURE START TIME: INCISION CLOSE/PROCEDURE END TIME: SURGEON(S)/PROCEDURALIST(S) AND FISHING FLOATS ASSEMBLER(S): Surgeon(s) and Role: * Misha Bedolla - Primary No Additional Staff SURGERY/PROCEDURE(S): CT-guided biopsy of mediastinal mass; bone marrow biopsy ANESTHESIA: Procedural Sedation FINDINGS: Successful ESTIMATED BLOOD LOSS: trace SPECIMENS: Bone marrow to hematology; mass for lymphoma protocol COMPLICATIONS: None PRE-OP/PRE-PROCEDURE DIAGNOSIS: lymphadenopathy POST-OP/POST-PROCEDURE DIAGNOSIS: same SIGNATURE: Misha Bedolla MD PATIENT NAME: Garrison Bernal DATE: August 01, 2018 TIME: 9:59 AM PAGER/CONTACT #: [phone] Additional Source Comments (unrecognized sect ion and content) No Status Records FoundNo Status Records FoundNo Status Records FoundNo Status Records Found INFORMATION SOURCE (unrecogn ized section and content) DATE CREATED AUTHOR AUTHOR'S ORGANIZ ATION 07/12/2019 [employer] [facility] [employer] DATE CREATED AUTHOR AUTHOR'S ORGANIZ ATION 01/25/2020 [facility] DATE CREATED AUTHOR AUTHOR'S ORGANIZ ATION 10/06/2021 [facility] FOR RECORDS PERTAINING TO PATIENTS WHO ARE [...] BE BASED ON THE PRIMARY CLINICAL RECORDS. [facility] [facility]. provides no warranty or guarantee of the accuracy or completeness of information in this document.
[2023-10-07 17:46] LABS: Hemoglobin A1c 6.8 % (3.8-5.6)
[2023-10-07 17:48] LABS: ALB/GLOB Ratio 1.1 RATIO (0.9-2.4); AST(SGOT) 26 U/L (15-37); Alanine Aminotransfer ALT/SGPT 73 U/L (16-61); Alkaline Phosphatase 60 U/L (45-117); Anion Gap 8 (5-15); BUN 14 mg/dL (7-18); BUN/Creat Ratio 12.2 RATIO (10-20); Calcium,Total 9.4 mg/dL (8.5-10.1); Chloride 106 mmol/L (98-107); Cholesterol 193 mg/dL (200); Creatinine, Serum 1.15 mg/dL (0.70-1.30); EST Glomerular Filtration Rate 70 mL/min (>60); Est Glom Filt Rate - Afr Amer 85 mL/min (>60); Globulin 3.8 g/dL (2.2-4.2); Glucose 201 mg/dL (74-106); High Density Lipoprotein 32 mg/dL; Potassium 3.8 mmol/L (3.5-5.1); Protein, Total 7.8 g/dL (6.4-8.2); Sodium Level 137 mmol/L (136-145); Triglycerides 284 mg/dL; Very Low Density Lipoprotein 57 mg/dL (5-40)
[2023-10-07 18:07] LABS: Microalbumin,Random Urine 11.5 mg/L (NO RANGE EST.); Microalbumin:Creatinine Ratio 34.5 mg/g CRE (<30 mg/g CRE)
== END | disposition home or self-care (01) ==
LOC: MFPLAB 14:42
PROVIDERS: PCP Family Medicine; Visit Provider Family Medicine
DX: E11.69 Type 2 diabetes mellitus with other specified complication (principal)
CPT/HCPCS: 36415; 80053; 80061; 82043; 82570; 83036

== ENCOUNTER → 2024-10-25 | Outpatient (CLI) | payer BC, SELFPAY ==
--- NOTE | 2024-10-25 14:51 | RAD_ITS ---
PROCEDURE: CHEST PA AND LATERAL REASON FOR EXAM: Cough TECHNIQUE: Frontal and lateral views of the chest. COMPARISON: None. FINDINGS: Cardiomediastinal silhouette is within normal limits. Lungs are clear. No sizable pneumothorax. RAD/Chest PA and Lateral IMPRESSION: No acute airspace abnormality. Reading Location: [facility]
[2024-10-25 17:37] LABS: Absolute Neutrophil Count 3.5 X10^3/uL (2.0-7.7); Basophil# 0.02 X10^3/uL; Basophil% 0.3 % (0-1); Eosinophil# 0.28 X10^3/uL; Eosinophils% 4.2 % (0-5); Hemoglobin 13.8 g/dL (13.0-16.5); Lymphocyte % 32.7 % (19-41); Mean Corp Hgb Conc 34.5 g/dL (32-36); Mean Corpuscular Hgb 30.1 pg (27.0-32.0); Mean Corpuscular Volume 87.1 fL (80-94); Monocyte# 0.66 X10^3/uL; Monocyte% 9.8 % (0-10); NRBC Flagged by Analyzer 0 % (0-5); Neutrophil # 3.48 X10^3/uL (2.7-7.7); Neutrophil % 51.8 % (47-70); Platelet Count 330 K/mm3 (150-450); RBC Distribution Width CV 11.7 % (11.6-14.6); RBC Distribution Width SD 37.5 fl (35.1-43.9); Red Blood Count 4.59 M/mm3 (4.6-6.2); White Blood Count 6.7 K/mm3 (4.4-11.0)
[2024-10-25 18:46] LABS: Hemoglobin A1c 7.7 % (<=5.6)
[2024-10-25 19:02] LABS: ALB/GLOB Ratio 1.3 RATIO (0.9-2.4); AST(SGOT) 67 U/L (<=37); Alanine Aminotransfer ALT/SGPT 120 U/L (<=46); Albumin, Serum 4.4 g/dL (3.5-5.0); Alkaline Phosphatase 66 U/L (40-129); Anion Gap 12 (5-15); BUN 12 mg/dL (4-19); BUN/Creat Ratio 12.1 RATIO (10-20); Calcium 9.9 mg/dL (7.6-11.0); Carbon Dioxide 23.5 mmol/L (22.0-29.0); Chloride 99 mmol/L (96-108); Cholesterol 178 mg/dL (<=200); Creatinine, Serum 0.98 mg/dL (0.70-1.20); EST Glomerular Filtration Rate 90 (>60); Free T3 2.9 pg/mL (2.18-3.98); Globulin 3.3 g/dL (2.2-4.2); Glucose 129 mg/dL (70-99); High Density Lipoprotein 26 mg/dL; Low Density Lipoprotein Calc. 60 mg/dL; Potassium 4.1 mmol/L (3.3-5.1); Protein, Total 7.7 g/dL (5.9-8.4); Sodium Level 135 mmol/L (133-145); Total Bilirubin 0.68 mg/dL (0.00-1.30); Triglycerides 457 mg/dL; Very Low Density Lipoprotein 91 mg/dL (5-40); Vitamin B12 922 pg/mL (180-914); cholesterol:hdl ratio screen 6.77
[2024-10-25 19:12] LABS: CRP < 3.00 mg/L (0.0-3.0)
[2024-10-31 12:08] LABS: Testosterone, % Free 4.26 % (1.50-4.20); Testosterone, Total 263 ng/dL (264-916)
== END | disposition home or self-care (01) ==
LOC: MTLAB 14:51
PROVIDERS: PCP Family Medicine
DX: Z00.00 Encounter for general adult medical examination without abnormal findings (principal); E11.69 Type 2 diabetes mellitus with other specified complication; R68.82 Decreased libido; J20.9 Acute bronchitis, unspecified
CPT/HCPCS: 36415; 71046; 80053; 80061; 82607; 83036; 84402; 84403; 84439; 84443; 84481; 85025; 86140

== ENCOUNTER → 2024-11-15 | Outpatient (CLI) | payer BC, SELFPAY | END | disposition home or self-care (01) | LOC: MFPLAB 15:41 | PROVIDERS: PCP Family Medicine; Referring Provider Family Medicine; Visit Provider Family Medicine | DX: E34.9 Endocrine disorder, unspecified (principal) | CPT/HCPCS: 36415; 84403 ==

== ENCOUNTER → 2025-08-26 | Outpatient (CLI) | payer BC, SELFPAY ==
[2025-08-26 17:41] LABS: Hematocrit 42.6 % (40-54); Hemoglobin 15.0 g/dL (13.0-16.5); Immature Granulocytes Count 0.140 X10^3/uL (0.0-0.0); Mean Corp Hgb Conc 35.2 g/dL (32-36); Mean Corpuscular Volume 85.5 fL (80-94); Mean Platelet Vol. 9.4 fl (6.2-12.0); NRBC Flagged by Analyzer 0 % (0-5); Platelet Count 290 K/mm3 (150-450); RBC Distribution Width CV 12.5 % (11.6-14.6); RBC Distribution Width SD 38.4 fl (35.1-43.9); Red Blood Count 4.98 M/mm3 (4.6-6.2); White Blood Count 9.1 K/mm3 (4.4-11.0)
[2025-08-26 18:08] LABS: Creatinine, Urine (random) 98.30 mg/dL (39.00-259.00); Microalbumin,Random Urine 79.9 mg/L (<20 mg/L)
[2025-08-26 19:32] LABS: AST(SGOT) 45 U/L (<=37); Alanine Aminotransfer ALT/SGPT 71 U/L (<=46); Albumin, Serum 4.7 g/dL (3.5-5.0); Alkaline Phosphatase 68 U/L (40-129); Anion Gap 13 (7-18); BUN 12 mg/dL (4-19); BUN/Creat Ratio 12.0 RATIO (10-20); Calcium,Total 9.9 mg/dL (7.6-11.0); Carbon Dioxide 23.2 mmol/L (20.0-29.0); Chloride 99 mmol/L (96-106); Globulin 3.4 g/dL (2.2-4.2); Glucose 169 mg/dL (70-99); Potassium 4.4 mmol/L (3.5-5.1)
== END | disposition home or self-care (01) ==
LOC: MFPLAB 15:59
PROVIDERS: PCP Family Medicine; Visit Provider Family Medicine
DX: E11.69 Type 2 diabetes mellitus with other specified complication (principal)
CPT/HCPCS: 36415; 80053; 82043; 82570; 85025